=== PATIENT | male | born 1985 | race Caucasian/White ===

== ENCOUNTER 2020-02-13 15:34 | Inpatient (IN) | payer MEDICAID ==
[~2020-02-13] VITALS: Ht 175.3 cm; Wt 69.5 kg
[2020-02-13] MEDS ORDERED: SODIUM CHLORIDE 0.9% 1,000 ML IV ONE (15:41)
--- NOTE | 2020-02-13 15:51 | NUR ---
LAURITA NUNES, PT WITH "HI" READING ON GLUCOMETER, PER PT HE HAS BEEN OUT OF INSULIN FOR 5 DAYS. PT WAS AT [facility] YESTERDAY AND PER EMS REPORT REFUSED REHAB. PT WITH N/V UPON ARRIVAL, VSS EXPECT RESP 28, ERMD IN TO EVAL PT. ORDERS RECEIVED. PT TO CARD MONITOR, BP, CONT PULSE OX
[2020-02-13] MEDS ORDERED: ONDANSETRON 2MG/ML, 2ML ONE ×2 (15:57→16:05)
[2020-02-13] MEDS ORDERED: INSULIN SINGLE DOSE, ER ONE (15:58)
[2020-02-13] MEDS ORDERED: INSULIN REGULAR 100 UNITS/ML, 3ML VIAL IVPush ONE (16:00)
[2020-02-13] MEDS ORDERED: PLEASE ENTER ALLERGIES MC SCH (16:00)
[2020-02-13] MEDS ORDERED: SODIUM CHLORIDE FLUSH 10ML SYR IVF ONE (16:00)
[2020-02-13] MEDS ORDERED: ONDANSETRON 2MG/ML, 2ML IM ONE (16:00)
[2020-02-13] MEDS ORDERED: SODIUM CHLORIDE 0.9% 1,000ML IVBOLUS ONE ×2 (16:00→16:30)
[2020-02-13] MEDS ORDERED: SODIUM CHLORIDE 0.9% 1,000 ML IV SCH (16:04)
[2020-02-13] MEDS ORDERED: HYDROmorphone 1 MG/ML, 1ML INJ ONE ×2 (16:05→16:49)
--- NOTE | 2020-02-13 16:05 | NUR ---
PT MEDICATED PER DEC, HOSPITALIST IN TO ADMIT PT
[2020-02-13 16:20] LABS: PH, VENOUS 6.954 pH (7.320-7.420)
[2020-02-13 16:21] LABS: BASOPHILS % (AUTO) 0 % (0-1); EOSINOPHILS % (AUTO) 0 % (1-7); LYMPHOCYTES # (AUTO) 0.53 x10^3/uL (1-3.4); LYMPHOCYTES % (AUTO) 5 % (22-44); MD NO; MEAN CORPUSCULAR HEMOGLOBIN 34.8 pg (27.5-34.5); MEAN CORPUSCULAR HGB CONC 33.6 g/dL (33.2-36.2); MEAN CORPUSCULAR VOLUME 103.5 fL (81-97); MEAN PLATELET VOLUME 8.4 fL (7.4-10.4); MONOCYTES # (AUTO) 0.54 x10^3/uL (0.2-0.8); MONOCYTES % (AUTO) 5 % (2-9); NEUTROPHILS # (AUTO) 9.32 x10^3/uL (1.8-6.8); NEUTROPHILS % (AUTO) 90 % (42-75); PLATELET COUNT 164 x10^3/uL (130-400); RED BLOOD COUNT 4.65 x10^6/uL (4.38-5.82); RED CELL DISTRIBUTION WIDTH 13.1 % (9.4-14.8)
[2020-02-13 16:26] LABS: ALANINE AMINOTRANSFERASE 65 U/L (12-78); ALBUMIN 3.4 g/dL (3.4-5.0); ANION GAP 27 mmol/L (5-15); CHLORIDE 100 mmol/L (98-107); CREATININE 1.24 mg/dL (0.7-1.3)
[2020-02-13 16:28] LABS: ALKALINE PHOSPHATASE 276 U/L (45-117); BILIRUBIN,TOTAL 0.6 mg/dL (0.2-1.0); TOTAL PROTEIN 7.3 g/dL (6.4-8.2)
[2020-02-13] MEDS ORDERED: LABETALOL 5MG/ML, 20ML IVPush PRN (16:30)
[2020-02-13] MEDS ORDERED: POLYETHYLENE GLYCOL 17 GM PACKET PO PRN (16:30)
[2020-02-13] MEDS ORDERED: LACTULOSE 10 GM/15 ML UDC PO PRN (16:30)
[2020-02-13] MEDS ORDERED: ONDANSETRON 2MG/ML, 2ML IV PRN (16:30)
[2020-02-13] MEDS ORDERED: DOCUSATE 100 MG CAPSULE PO PRN (16:30)
--- NOTE | 2020-02-13 16:47 | NUR ---
TASK RN: 2ND LARGE BORE (18GA) PIV STARTED TO LEFT FOREARM FSBS RECHECKED: 403 pRIMARY RN (SENAIT) MADE AWARE
[2020-02-13 17:18] LABS: ACETONE, SERUM Large (80mg/dL) (Negative)
[2020-02-13] MEDS: REGULAR INSULIN 100 UNITS in SODIUM CHLORIDE 0.9% 99 ML IV PRN (18:06)
[2020-02-13] MEDS: ENOXAPARIN 40 MG/0.4 ML SQ SCH (18:09)
[2020-02-13 18:12] LABS: MICROSCOPIC AUTO
[2020-02-13 18:15] LABS: CULTURE INDICATED? NO
[2020-02-13 18:24] LABS: AMPHETAMINE SCREEN, URINE Negative (Negative); BARBITURATE SCREEN, URINE Negative (Negative); BENZODIAZEPINE SCREEN, URINE Negative (Negative); CANNABINOID SCREEN, URINE Positive (Negative); COCAINE SCREEN, URINE Negative (Negative); METHADONE SCREEN, URINE Negative (Negative); OPIATE SCREEN, URINE Negative (Negative)
[2020-02-13] MEDS ORDERED: INSU100V8 SQ (18:27)
[2020-02-13] MEDS ORDERED: INSU100I11 SQ-INSULIN (18:27)
[2020-02-13 20:51] LABS: ANION GAP 24 mmol/L (5-15); CALCIUM 7.5 mg/dL (8.5-10.1); CHLORIDE 107 mmol/L (98-107); CREATININE 1.09 mg/dL (0.7-1.3)
[2020-02-13] MEDS: D5%-0.45NACL+KCL 20MEQ 1,000 ML IV SCH (23:00)
[2020-02-14 01:53] LABS: ANION GAP 10 mmol/L (5-15); CALCIUM 7.2 mg/dL (8.5-10.1); CHLORIDE 114 mmol/L (98-107); CREATININE 0.95 mg/dL (0.7-1.3)
[2020-02-14 04:00] VITALS: BP 110/57
[2020-02-14 05:41] LABS: ANION GAP 13 mmol/L (5-15); CALCIUM 7.3 mg/dL (8.5-10.1); CHLORIDE 113 mmol/L (98-107); CREATININE 0.86 mg/dL (0.7-1.3)
[2020-02-14] MEDS: D5%-0.45NACL+KCL 20MEQ 1,000 ML IV SCH ×2 (07:41→15:49)
[2020-02-14 08:31] LABS: ANION GAP 13 mmol/L (5-15); CALCIUM 7.6 mg/dL (8.5-10.1); CHLORIDE 109 mmol/L (98-107)
[2020-02-14 08:32] LABS: CREATININE 0.87 mg/dL (0.7-1.3)
[2020-02-14] MEDS: OXYcodone IR 5MG TABLET PO PRN ×3 (11:44→20:00)
[2020-02-14 12:28] LABS: ANION GAP 11 mmol/L (5-15); CALCIUM 7.7 mg/dL (8.5-10.1); CHLORIDE 110 mmol/L (98-107)
[2020-02-14 12:30] LABS: CREATININE 0.84 mg/dL (0.7-1.3)
[2020-02-14 16:13] LABS: ANION GAP 10 mmol/L (5-15); CALCIUM 7.8 mg/dL (8.5-10.1); CHLORIDE 109 mmol/L (98-107)
[2020-02-14] MEDS: ENOXAPARIN 40 MG/0.4 ML SQ SCH (17:15)
[2020-02-14] MEDS: REGULAR INSULIN 100 UNITS in SODIUM CHLORIDE 0.9% 99 ML IV PRN (17:19)
[2020-02-14] MEDS ORDERED: PHENOBARBITAL ETOH DETOX PER PHARMACY MC PRN (17:30)
[2020-02-14] MEDS ORDERED: PHENOBARBITAL SODIUM 650 MG in SODIUM CHLORIDE 0.9% 50 ML IV ONE (17:30)
[2020-02-14] MEDS ORDERED: POTASSIUM CHLORIDE 20 MEQ TAB.ER.PRT ONE (17:51)
[2020-02-14] MEDS ORDERED: POTASSIUM CHLORIDE 20 MEQ TAB.ER.PRT PO ONE (18:00)
[2020-02-14] MEDS ORDERED: PHENOBARBITAL SODIUM IV ONE (20:30)
[2020-02-14] MEDS ORDERED: SODIUM CHLORIDE 0.9% IV ONE (20:30)
[2020-02-14 21:10] LABS: ANION GAP 11 mmol/L (5-15); CALCIUM 7.7 mg/dL (8.5-10.1); CHLORIDE 106 mmol/L (98-107); CREATININE 0.75 mg/dL (0.7-1.3)
[2020-02-15] MEDS: OXYcodone IR 5MG TABLET PO PRN ×3 (00:02→20:57)
[2020-02-15 00:39] LABS: ANION GAP 8 mmol/L (5-15); CALCIUM 7.5 mg/dL (8.5-10.1); CHLORIDE 107 mmol/L (98-107); CREATININE 0.72 mg/dL (0.7-1.3)
[2020-02-15] MEDS: D5%-0.45NACL+KCL 20MEQ 1,000 ML IV SCH (00:54)
[2020-02-15] MEDS ORDERED: PHENOBARBITAL SODIUM 65 MG/ML, 1ML IM SCH (03:00)
[2020-02-15 04:23] VITALS: BP 142/83
[2020-02-15 04:27] LABS: ANION GAP 9 mmol/L (5-15); CALCIUM 7.6 mg/dL (8.5-10.1); CHLORIDE 105 mmol/L (98-107)
[2020-02-15] MEDS ORDERED: MORPHINE SULFATE 4 MG/ML, 1ML IVPush ONE (05:30)
[2020-02-15] MEDS: POTASSIUM CHLORIDE 20 MEQ TAB.ER.PRT PO SCH ×2 (07:54→16:25)
[2020-02-15] MEDS: SODIUM CHLORIDE 0.9% 1,000 ML IV SCH ×2 (07:54→17:40)
[2020-02-15] MEDS: INSULIN GLARGINE 100 UNITS/ML, PEN SQ-INSULIN SCH ×2 (08:03→20:58)
[2020-02-15] MEDS: INSULIN LISPRO 100 UNITS/ML, PEN SQ-INSULIN SCH ×3 (12:01→20:57)
[2020-02-15 14:15] VITALS: BP 120/79
[2020-02-15] MEDS: PHENOBARBITAL 20 MG/5 ML ORAL SOL PO SCH (15:16)
[2020-02-15] MEDS: ENOXAPARIN 40 MG/0.4 ML SQ SCH (16:26)
[2020-02-15 19:09] VITALS: BP 108/68
[2020-02-16 01:16] VITALS: BP 106/63
[2020-02-16] MEDS: PHENOBARBITAL 20 MG/5 ML ORAL SOL PO SCH ×2 (03:08→16:12)
[2020-02-16 06:06] LABS: ANION GAP 6 mmol/L (5-15); CALCIUM 7.8 mg/dL (8.5-10.1); CHLORIDE 110 mmol/L (98-107)
[2020-02-16] MEDS: INSULIN LISPRO 100 UNITS/ML, PEN SQ-INSULIN SCH ×3 (07:00→16:18)
[2020-02-16 07:09] VITALS: BP 95/57
[2020-02-16 08:03] LABS: ALBUMIN 1.8 g/dL (3.4-5.0); BILIRUBIN, DIRECT 0.1 mg/dL (0.1-0.2)
[2020-02-16 08:05] LABS: BILIRUBIN,INDIRECT 0.3 mg/dL (0.0-2.0); BILIRUBIN,TOTAL 0.4 mg/dL (0.2-1.0); TOTAL PROTEIN 5.1 g/dL (6.4-8.2)
[2020-02-16] MEDS ORDERED: INSU100I13 SQ-INSULIN (08:56)
[2020-02-16] MEDS ORDERED: MAGN400T50 PO (08:56)
[2020-02-16] MEDS ORDERED: MAGNESIUM OXIDE 400 MG TABLET PO SCH (09:00)
[2020-02-16] MEDS ORDERED: MAGNESIUM SULFATE PMX 2GM/50ML 50 ML IV ONE (09:00)
[2020-02-16] MEDS: INSULIN GLARGINE 100 UNITS/ML, PEN SQ-INSULIN SCH (10:10)
[2020-02-16] MEDS: POTASSIUM ACID PHOSPHATE 500 MG TABLET.SOL PO SCH ×2 (10:11→16:12)
[2020-02-16] MEDS: POTASSIUM CHLORIDE 20 MEQ TAB.ER.PRT PO SCH ×2 (10:11→16:12)
[2020-02-16 13:03] VITALS: BP 93/60
[2020-02-17] MEDS ORDERED: PHENOBARBITAL 20 MG/5 ML ORAL SOL PO SCH (03:00)
[2020-02-19] MEDS ORDERED: PHENOBARBITAL 20 MG/5 ML ORAL SOL PO SCH (03:00)
[2020-02-20] MEDS ORDERED: PHENOBARBITAL 20 MG/5 ML ORAL SOL PO SCH (03:00)
== END 2020-02-16 17:27 | disposition home or self-care (01) | DRG 420 ==
LOC: ED 16:03 → EDIP 16:04 → ED 16:31 → CCU 17:38 → 4WST 02-15 10:40
PROVIDERS: ADMIT Internal Medicine; ATTEND Internal Medicine
DX: E10.10 Type 1 diabetes mellitus with ketoacidosis without coma (principal); E83.39 Other disorders of phosphorus metabolism; M06.9 Rheumatoid arthritis, unspecified; E83.51 Hypocalcemia; D75.89 Other specified diseases of blood and blood-forming organs; D72.828 Other elevated white blood cell count; E87.1 Hypo-osmolality and hyponatremia; E83.42 Hypomagnesemia; E87.6 Hypokalemia; E86.0 Dehydration; F17.200 Nicotine dependence, unspecified, uncomplicated; Z79.4 Long term (current) use of insulin; Z91.14 Patient's other noncompliance with medication regimen; Z79.899 Other long term (current) drug therapy
CPT/HCPCS: 36415; 36600; 71045; 80048; 80053; 80076; 80307; 81001; 82010; 82803; 82962; 83036; 83690; 83735; 84100; 85025; 87040; 87081; 93005; 96361; 96372; 96374; 96375; G0378; J1650; J1815; J2405; J2560; J2270; J3475; J3480; J7030